=== PATIENT | female | born 1945 | race Caucasian/White ===

== ENCOUNTER 2025-09-16 11:34 | Inpatient (IN) | payer BC, MEDICAID, MEDICARE ==
[~2025-09-16] VITALS: Ht 157.5 cm; Wt 59.9 kg
[~2025-09-16 11:34] MED LIST: calcium; glipizide; losartan-hctz; metformin hcl; vitamin d
[2025-09-16 11:36] VITALS: O2SAT 98
[2025-09-16] MEDS: SODIUM CHLORIDE 0.9% 1,000 ML IV ONE (12:10)
[2025-09-16] MEDS: FAMOTIDINE 20MG/2ML VIAL IV ONE (12:10)
[2025-09-16] MEDS: ONDANSETRON HCL 4MG/2ML INJ IV ONE (12:11)
[2025-09-16] MEDS: KETOROLAC 30MG/ML VIAL IV ONE (12:11)
[2025-09-16 12:42] LABS: BASOPHILS % 0.6 % (0.0-2.0); EOSINOPHILS % 2.3 % (0.0-5.0); HEMATOCRIT. 36.4 % (36.0-48.0); HEMOGLOBIN. 12.1 g/dL (12.0-16.0); LYMPHOCYTES % 19.8 % (20.0-50.0); MEAN PLATELET VOLUME 8.3 fl (7.4-10.4); MONOCYTES % 8.2 % (2.0-8.0); NEUTROPHILS % 69.1 % (40.0-76.0); PLATELET 262 x1000/uL (130-400); RED BLOOD CELL COUNT 4.12 mill/uL (4.2-5.4); RED CELL DISTRIBUTION WIDTH 14.6 % (11.6-14.6)
[2025-09-16 12:57] LABS: CREATININE 0.7 mg/dL (0.6-1.0)
[2025-09-16 12:58] LABS: UREA NITROGEN BLOOD 6 mg/dL (9-23)
[2025-09-16 12:59] LABS: ASPARTATE AMINOTRANSFERASE 20 IU/L (<34)
[2025-09-16 13:00] LABS: CLARITY URINE TURBID (CLEAR); COLOR URINE ORANGE (YELLOW); GLUCOSE URINE NEGATIVE (NEGATIVE); KETONES URINE NEGATIVE (NEGATIVE); LEUKOCYTE ESTERASE URINE 3+ (NEGATIVE); NITRITE URINE POSITIVE (NEGATIVE); OCCULT BLOOD URINE 3+ (NEGATIVE); PH URINE 6.5 (4.5-8.0); PROTEIN URINE 3+ (NEGATIVE); SPECIFIC GRAVITY URINE 1.010 (1.005-1.030); UROBILINOGEN URINE 0.2 E.U./dL (0.2-1.0)
[2025-09-16 13:00] LABS: BILIRUBIN DIRECT 0.1 mg/dL (<=3.0); BILIRUBIN TOTAL 0.4 mg/dL (0.1-1.0); PROTEIN TOTAL 7.9 g/dL (6.0-8.3)
[2025-09-16 13:28] LABS: SQUAMOUS EPITHELIAL CELL URINE 2+ /lpf (RARE/1+)
[2025-09-16 13:30] LABS: RBC URINE TNTC /hpf (0-2); WBC URINE TNTC /hpf (0-2)
[2025-09-16 13:31] LABS: BACTERIA URINE 1+
[2025-09-16] MEDS: CEFTRIAXONE 1GM/50ML 50 ML IV SCH (13:46)
[2025-09-16] MEDS ORDERED: IOHEXOL-300 100 ML BOTTLE ONE (15:57)
[2025-09-16 16:00] VITALS: BP 151/55; PULSE 75; RESP 17; TEMP 36.9; O2SAT 98
[2025-09-16 16:39] VITALS: BP 152/55; PULSE 73; RESP 18; TEMP 36.6404
[2025-09-16] MEDS ORDERED: DEXTROSE 50% WATER 50ML SYRINGE IV PRN (17:00)
[2025-09-16] MEDS ORDERED: ONDANSETRON HCL 4MG/2ML INJ IV PRN (17:00)
[2025-09-16] MEDS ORDERED: *PATIENT'S OWN MEDICATION STORAGE XX SCH (17:15)
[2025-09-16] MEDS: INSULIN LISPRO 100 UNITS/ML SUBCUT SCH (17:30)
[2025-09-16] MEDS ORDERED: GABA-290 PO (17:30)
[2025-09-16] MEDS ORDERED: IBUP-1523 PO (17:33)
[2025-09-16] MEDS ORDERED: LEVO112T7 PO (17:33)
[2025-09-16] MEDS ORDERED: FURO20TA4 PO (17:34)
[2025-09-16] MEDS ORDERED: CARV12.545 PO (17:34)
[2025-09-16] MEDS ORDERED: AMLO10TA80 PO (17:35)
[2025-09-16] MEDS: BLOOD SUGAR DIAGNOSTIC STRIP TEST SCH (17:48)
[2025-09-16] MEDS: MORPHINE SULFATE 4 MG/ML INJ (FOR IV/IM USE) IV PRN (17:58)
[2025-09-16] MEDS: SODIUM CHLORIDE 0.9% 1,000 ML IV SCH (18:11)
[2025-09-16 20:00] VITALS: BP 127/47; PULSE 66; RESP 19; TEMP 36.7; O2SAT 97
[2025-09-16] MEDS: CARVEDILOL 12.5MG TABLET PO SCH (21:05)
[2025-09-16] MEDS: GABAPENTIN 300MG CAPSULE PO SCH (21:05)
[2025-09-16] MEDS ORDERED: NALOXONE HCL 0.4MG/ML VIAL IV PRN (23:45)
[2025-09-17] VITALS: BP 121/48; PULSE 60; RESP 19; TEMP 36.6; O2SAT 98
[2025-09-17 04:00] VITALS: BP 131/59; PULSE 81; RESP 18; TEMP 36.9; O2SAT 100
[2025-09-17 08:00] VITALS: BP 126/49; PULSE 68; RESP 19; TEMP 36.6; O2SAT 100
[2025-09-17] MEDS: FUROSEMIDE 20MG TABLET PO SCH (08:47)
[2025-09-17] MEDS: LOSARTAN 25 MG TABLET PO SCH (08:47)
[2025-09-17] MEDS: AMLODIPINE 10MG TABLET PO SCH (08:48)
[2025-09-17] MEDS: CEFTRIAXONE 2,000 MG in DEXTROSE 5% WATER 50 ML IV SCH (08:48)
[2025-09-17 12:00] VITALS: BP 108/37; PULSE 90; RESP 19; TEMP 36.5; O2SAT 100
[2025-09-17] MEDS: POLYETHYLENE GLYCOL 3350 (17GM) 1 DOSE PACK PO SCH (12:07)
[2025-09-17 12:22] LABS: BASOPHILS % 0.5 % (0.0-2.0); EOSINOPHILS % 1.7 % (0.0-5.0); HEMATOCRIT. 30.7 % (36.0-48.0); HEMOGLOBIN. 10.0 g/dL (12.0-16.0); LYMPHOCYTES % 14.3 % (20.0-50.0); MEAN PLATELET VOLUME 8.2 fl (7.4-10.4); MONOCYTES % 8.5 % (2.0-8.0); NEUTROPHILS % 75.0 % (40.0-76.0); PLATELET 176 x1000/uL (130-400); RED BLOOD CELL COUNT 3.43 mill/uL (4.2-5.4); RED CELL DISTRIBUTION WIDTH 14.9 % (11.6-14.6)
[2025-09-17 12:43] LABS: CREATININE 0.9 mg/dL (0.6-1.0); UREA NITROGEN BLOOD 7.0 mg/dL (9-23)
[2025-09-17 12:46] LABS: T4 FREE 1.57 ng/dL (0.89-1.76)
[2025-09-17] MEDS: ENOXAPARIN 40MG/0.4ML SYR SUBCUT SCH (13:48)
[2025-09-17 16:00] VITALS: BP 120/40; PULSE 63; RESP 18; TEMP 36.4; O2SAT 95
[2025-09-17 20:00] VITALS: BP 128/55; PULSE 63; RESP 18; TEMP 36.1; O2SAT 97
[2025-09-18] VITALS: BP 131/44; PULSE 74; RESP 18; TEMP 36.3; O2SAT 100
[2025-09-18 04:00] VITALS: BP 130/48; PULSE 97; RESP 18; TEMP 36.3; O2SAT 100
[2025-09-18 08:00] VITALS: BP 127/41; PULSE 61; RESP 18; TEMP 36.6; O2SAT 96
[2025-09-18] MEDS: DOCUSATE SODIUM SUGAR FREE 100MG/10ML UDC NG SCH (08:59)
[2025-09-18 11:31] LABS: BASOPHILS % 0.5 % (0.0-2.0); EOSINOPHILS % 3.2 % (0.0-5.0); HEMATOCRIT. 29.8 % (36.0-48.0); HEMOGLOBIN. 9.7 g/dL (12.0-16.0); LYMPHOCYTES % 19.0 % (20.0-50.0); MEAN PLATELET VOLUME 8.6 fl (7.4-10.4); MONOCYTES % 9.6 % (2.0-8.0); NEUTROPHILS % 67.7 % (40.0-76.0); PLATELET 175 x1000/uL (130-400); RED BLOOD CELL COUNT 3.32 mill/uL (4.2-5.4); RED CELL DISTRIBUTION WIDTH 14.8 % (11.6-14.6)
[2025-09-18] MEDS: BISACODYL 10MG SUPP PR NR (11:40)
[2025-09-18 11:46] LABS: CREATININE 0.9 mg/dL (0.6-1.0); UREA NITROGEN BLOOD 10.0 mg/dL (9-23)
[2025-09-18 12:00] VITALS: BP 125/46; PULSE 63; RESP 18; TEMP 36.4; O2SAT 98
[2025-09-18] MEDS: PHENAZOPYRIDINE HCL 100MG TABLET PO SCH (13:16)
[2025-09-18 16:00] VITALS: BP 135/51; PULSE 65; RESP 18; TEMP 36.4; O2SAT 97
[2025-09-18 20:00] VITALS: BP 133/49; PULSE 18; PULSE 64; RESP 18; TEMP 36.6; O2SAT 97
[2025-09-19] VITALS: BP 150/57; PULSE 65; RESP 18; TEMP 36.6; O2SAT 97
[2025-09-19 04:00] VITALS: BP 143/47; PULSE 61; RESP 19; TEMP 36.1; O2SAT 97
[2025-09-19] MEDS ORDERED: LIDOCAINE HCL 1% 10 MG/ML 10ML VIAL ONE (07:38)
[2025-09-19 08:00] VITALS: BP 137/50; PULSE 61; RESP 16; TEMP 36.3; O2SAT 97
[2025-09-19 08:59] LABS: BASOPHILS % 0.4 % (0.0-2.0); EOSINOPHILS % 3.4 % (0.0-5.0); HEMATOCRIT. 32.6 % (36.0-48.0); HEMOGLOBIN. 10.5 g/dL (12.0-16.0); LYMPHOCYTES % 21.1 % (20.0-50.0); MEAN PLATELET VOLUME 8.2 fl (7.4-10.4); MONOCYTES % 8.7 % (2.0-8.0); NEUTROPHILS % 66.4 % (40.0-76.0); PLATELET 195 x1000/uL (130-400); RED BLOOD CELL COUNT 3.62 mill/uL (4.2-5.4); RED CELL DISTRIBUTION WIDTH 15.3 % (11.6-14.6)
[2025-09-19 09:09] LABS: CREATININE 0.9 mg/dL (0.6-1.0); UREA NITROGEN BLOOD 11.0 mg/dL (9-23)
[2025-09-19 12:00] VITALS: BP 127/65; PULSE 60; RESP 20; TEMP 36.3; O2SAT 96
[2025-09-19 16:00] VITALS: BP 111/30; PULSE 60; RESP 20; TEMP 36.4; O2SAT 96
[2025-09-19] MEDS: MEROPENEM 1G/100ML IV SCH (16:13)
[2025-09-19 20:00] VITALS: BP 141/52; PULSE 70; RESP 18; TEMP 36.6; O2SAT 97
[2025-09-20] VITALS: BP 131/47; PULSE 67; RESP 16; TEMP 36.6; O2SAT 97
[2025-09-20 04:00] VITALS: BP 131/47; PULSE 67; RESP 16; TEMP 36.6; O2SAT 97
[2025-09-20 08:00] VITALS: BP 138/43; PULSE 63; RESP 16; TEMP 36.6; O2SAT 97
[2025-09-20] MEDS: ACETAMINOPHEN 500MG TABLET PO PRN (10:00)
[2025-09-20 12:00] VITALS: BP 143/47; PULSE 64; RESP 16; TEMP 36.4; O2SAT 96
[2025-09-20 14:27] VITALS: BP 143/47; PULSE 64; RESP 16; TEMP 97.6
== END 2025-09-20 15:45 | disposition home or self-care (01) | DRG 690 ==
LOC: ER 11:34 → 8EST 14:09 → EDBEDREQSVC 14:19 → EDBEDREQ 14:19 → EDBEDREQTM 14:19 → ENRESERV 15:12
PROVIDERS: ADMIT Internal Medicine; ATTEND Internal Medicine
PROC: 05HY33Z Insertion of Infusion Device into Upper Vein, Percutaneous Approach (ICD-10-PCS; principal; 2025-09-19)
PROC: B54MZZA Ultrasonography of Right Upper Extremity Veins, Guidance (ICD-10-PCS; 2025-09-19)
DX: N12 Tubulo-interstitial nephritis, not specified as acute or chronic (principal); E87.1 Hypo-osmolality and hyponatremia; I10 Essential (primary) hypertension; E11.9 Type 2 diabetes mellitus without complications; B96.20 Unspecified Escherichia coli [E. coli] as the cause of diseases classified elsewhere; K59.00 Constipation, unspecified; M54.50 Low back pain, unspecified; Z79.4 Long term (current) use of insulin; Z90.49 Acquired absence of other specified parts of digestive tract; Z79.899 Other long term (current) drug therapy
CPT/HCPCS: 36415; 36573; 74177; 80048; 80076; 80320; 81003; 82533; 82962; 83036; 84439; 84443; 85025; 87077; 87186; 99291; C1725; J0696; J1308; J1650; J1815; J1885; J2003; J2185; J2270; J2405; J7030; J7060; Q9967; G0480